=== PATIENT | female | born 1950 ===

== ENCOUNTER 2017-02-15 08:20 | Day surgery (SDC) | payer OTHER ==
[2017-02-11 08:35] VITALS: BMI 51.9
[2017-02-15] MEDS ORDERED: Lidocaine 2% Inj (20ml) ONE (09:02)
[2017-02-15] MEDS ORDERED: Propofol 10 mg/ml Inj (20 ML) ONE (09:03)
[2017-02-15] MEDS ORDERED: Midazolam 2 MG/2 ML VIAL ONE (09:22)
[2017-02-15] MEDS ORDERED: Lactated Ringer's 1,000 ML IV SCH (09:59)
[2017-02-15 10:50] VITALS: O2SAT 98
[2017-02-15 10:57] VITALS: BP 145/78; PULSE 68; RESP 16; TEMP 98.3
== END 2017-02-15 11:43 | disposition home or self-care (01) ==
LOC: ENDO 08:20
PROVIDERS: ATTEND Internal Medicine
DX: D12.2 Benign neoplasm of ascending colon (principal); D12.3 Benign neoplasm of transverse colon; K57.30 Diverticulosis of large intestine without perforation or abscess without bleeding; K64.8 Other hemorrhoids; R63.5 Abnormal weight gain; E11.9 Type 2 diabetes mellitus without complications; E05.90 Thyrotoxicosis, unspecified without thyrotoxic crisis or storm; I10 Essential (primary) hypertension; G62.9 Polyneuropathy, unspecified; E78.00 Pure hypercholesterolemia, unspecified; Z12.11 Encounter for screening for malignant neoplasm of colon
CPT/HCPCS: 45380; 88305; J2250; J2704; J3010; J7040; J7120